=== PATIENT | male | born 1935 | race Caucasian/White ===

== ENCOUNTER 2016-12-10 09:31 | Inpatient (IN) | payer MEDICARE ==
[2016-12-10 09:58] LABS: BASOPHIL 0.3 % (0-2); EOSINOPHIL 2.2 % (0-7); HCT 24.8 % (42.0-52.0); HGB 7.7 g/dl (13.2-18.0); LYMPHOCYTE 13.7 % (15-48); MONOCYTE 5.1 % (0-12); MPV 10.3 fL (6.0-9.5); NEUTROPHIL 78.7 % (41-80); PLT 152 K/uL (150-400); RBC 2.48 M/uL (4.70-6.00); RDW 16.1 % (11.5-14.0); WBC 6.3 K/uL (4.0-10.5)
[2016-12-10 10:22] LABS: ALBUMIN 3.3 g/dL (3.4-4.8); BILIRUBIN - TOTAL 0.7 mg/dL (0.1-1.0); GLOBULIN (CALCULATION) 2.4 g/dL (2.2-4.2); POTASSIUM 4.8 mmol/L (3.5-5.1); TOTAL PROTEIN 5.7 g/dL (6.4-8.3)
[2016-12-10 10:24] LABS: LACTIC ACID 0.5 mmol/L (0.5-2.2)
[2016-12-10 10:26] LABS: TROPONIN T 0.083 ng/mL
[2016-12-10 18:06] LABS: PHOSPHORUS 6.3 mg/dL (2.7-4.5)
[2016-12-10 18:08] LABS: CKMB 4.21 ng/mL (0.97-4.94); TROPONIN T 0.073 ng/mL
[2016-12-10 23:26] LABS: TROPONIN T 0.079 ng/mL
[2016-12-11 04:48] LABS: CREATININE 6.1 mg/dL (0.7-1.2); MAGNESIUM 2.11 mg/dL (1.40-2.10)
[2016-12-11 06:29] LABS: BASOPHIL 0.2 % (0-2); EOSINOPHIL 4.7 % (0-7); HCT 22.8 % (42.0-52.0); LYMPHOCYTE 16.5 % (15-48); MCH 30.8 pg (25.0-31.0); MCHC 30.7 g/dL (32.0-36.0); MCV 100.4 fL (78.0-100.0); MONOCYTE 9.2 % (0-12); MPV 9.6 fL (6.0-9.5); NEUTROPHIL 69.4 % (41-80); PLT 146 K/uL (150-400); RBC 2.27 M/uL (4.70-6.00); RDW 15.9 % (11.5-14.0)
[2016-12-12 04:50] LABS: BASOPHIL 0.1 % (0-2); EOSINOPHIL 6.8 % (0-7); HCT 28.9 % (42.0-52.0); LYMPHOCYTE 20.7 % (15-48); MCH 31.1 pg (25.0-31.0); MCHC 31.8 g/dL (32.0-36.0); MCV 97.6 fL (78.0-100.0); MPV 10.5 fL (6.0-9.5); NEUTROPHIL 64.4 % (41-80); PLT 143 K/uL (150-400); RBC 2.96 M/uL (4.70-6.00); RDW 17.1 % (11.5-14.0); WBC 6.7 K/uL (4.0-10.5)
[2016-12-12 04:53] LABS: HGB 9.2 g/dl (13.2-18.0)
[2016-12-12 05:04] LABS: CREATININE 6.2 mg/dL (0.7-1.2); MAGNESIUM 2.02 mg/dL (1.40-2.10); PHOSPHORUS 6.3 mg/dL (2.7-4.5); POTASSIUM 4.9 mmol/L (3.5-5.1)
--- NOTE | 2016-12-12 14:23 | NUR ---
REPORT CALLED TO CHARLI RN AT 1330. PT TRANSPORTED TO [facility] 206 AT 1400. PT TOLERATED TRANSPORT WELL. VITALS STABLE. NO DISTRESS NOTED
[2016-12-13 06:21] LABS: HCT 29.4 % (42.0-52.0); HGB 9.2 g/dl (13.2-18.0); MCH 30.5 pg (25.0-31.0); MCHC 31.3 g/dL (32.0-36.0); MCV 97.4 fL (78.0-100.0); MPV 10.4 fL (6.0-9.5); RBC 3.02 M/uL (4.70-6.00); RDW 16.8 % (11.5-14.0); WBC 6.7 K/uL (4.0-10.5)
[2016-12-13 06:36] LABS: CREATININE 6.4 mg/dL (0.7-1.2); MAGNESIUM 1.96 mg/dL (1.40-2.10); POTASSIUM 4.6 mmol/L (3.5-5.1)
--- NOTE | 2016-12-13 14:08 | NUR ---
REVIEWED DISCHARGE INFORMATION, MEDICATIONS, APPT INFORMATION WITH PT, SPOUSE AND DAUGHTER VERBALIZED UNDERSTANDING SCRIPT FOR VIT D FAXED TO [facility] TO HAVE OTHER SCRIPTS FILLED IN TOWN
[2016-12-13] MEDS ORDERED: CEFDINIR300 MG PO (15:26)
[2016-12-13] MEDS ORDERED: AZITHROMYCIN250 MG PO (15:27)
[2016-12-13] MEDS ORDERED: DRISDOL50000 UNIT PO (15:27)
[2016-12-13] MEDS ORDERED: PHOSLO667 MG PO (15:27)
[2016-12-13] MEDS ORDERED: SODIUM BICARBO650 M1 PO (15:28)
[2016-12-13] MEDS ORDERED: ASPIRIN CHEWABL81 MG PO (15:28)
[2016-12-13] MEDS ORDERED: FEOSOL325 MG PO (15:29)
[2016-12-13] MEDS ORDERED: COSOPT EYE DROP10 ML OU (15:29)
[2016-12-13] MEDS ORDERED: ISOSORBIDE MONO30 MG PO (15:29)
[2016-12-13] MEDS ORDERED: ALLOPURINOL100 MG PO (15:30)
[2016-12-13] MEDS ORDERED: XANAX0.25 MG PO (15:30)
[2016-12-13] MEDS ORDERED: MIRTAZAPINE7.5 MG PO (15:30)
[2016-12-13] MEDS ORDERED: LIPITOR40 MG PO (15:31)
[2016-12-13] MEDS ORDERED: NORVASC5 MG PO (15:31)
[2016-12-13] MEDS ORDERED: COREG 6.25MG6.25 MG PO (15:31)
[2016-12-13] MEDS ORDERED: MINIPRESS5 MG PO (15:31)
[2016-12-13] MEDS ORDERED: LASIX20 MG PO (15:32)
[2016-12-13] MEDS ORDERED: CATAPRES0.1 MG PO (15:32)
[2016-12-13] MEDS ORDERED: LEXAPRO 10MG TA10 MG PO (15:32)
== END 2016-12-13 14:36 | disposition home or self-care (01) | DRG 291 ==
LOC: FER 09:31 → FICU 11:50 → FMS 11:50 → FTCU 12-11 16:22 → FMS 12-12 13:51
PROVIDERS: Internal Medicine; ADMIT Internal Medicine Nephrology
PROC: 30233N1 Transfusion of Nonautologous Red Blood Cells into Peripheral Vein, Percutaneous Approach (ICD-10-PCS; principal; 2016-12-10)
DX: I13.2 Hypertensive heart and chronic kidney disease with heart failure and with stage 5 chronic kidney disease, or end stage renal disease (principal); J96.01 Acute respiratory failure with hypoxia; N17.9 Acute kidney failure, unspecified; E87.2 Acidosis; N18.5 Chronic kidney disease, stage 5; I27.2 Other secondary pulmonary hypertension; I50.31 Acute diastolic (congestive) heart failure; E11.22 Type 2 diabetes mellitus with diabetic chronic kidney disease; D63.1 Anemia in chronic kidney disease; E11.319 Type 2 diabetes mellitus with unspecified diabetic retinopathy without macular edema; E21.3 Hyperparathyroidism, unspecified; E83.39 Other disorders of phosphorus metabolism; I35.1 Nonrheumatic aortic (valve) insufficiency; Z79.82 Long term (current) use of aspirin; Z79.01 Long term (current) use of anticoagulants; E11.40 Type 2 diabetes mellitus with diabetic neuropathy, unspecified; Z87.891 Personal history of nicotine dependence; Z83.3 Family history of diabetes mellitus; Z66 Do not resuscitate
CPT/HCPCS: 36415; 36430; 36600; 71010; 80048; 80053; 82306; 82550; 82553; 82803; 82962; 83605; 83735; 83880; 83970; 84100; 84484; 85025; 85379; 86850; 86900; 86901; 86922; 87040; 93005; 94640; 97116; 97163; 97167; 97530; 97530-GP; 97535; J0610; J0885; J1940; J2270; P9016